=== PATIENT | female | born 2000 | race African-American/Black ===

== ENCOUNTER 2021-07-22 23:50 | Emergency (ER) | payer MEDICAID ==
[~2021-07-22] VITALS: Ht 154.9 cm; Wt 90.0 kg
[2021-07-23 01:07] LABS: BASOPHILS % 0.8 % (0.0-2.0); HEMATOCRIT. 33.8 % (36.0-48.0); HEMOGLOBIN. 10.8 g/dL (12.0-16.0); LYMPHOCYTES % 31.8 % (20.0-50.0); MEAN CORPUSCULAR HEMOGLOBIN 24.7 pg (28.0-32.0); MEAN CORPUSCULAR VOLUME 77.6 fL (81.0-99.0); MONOCYTES % 8.4 % (2.0-8.0); PLATELET 285 x1000/uL (130-400); RED BLOOD CELL COUNT 4.36 mill/uL (4.2-5.4); RED CELL DISTRIBUTION WIDTH 15.8 % (11.6-14.6)
[2021-07-23 01:16] LABS: CHLORIDE 109 mEq/L (98-107)
[2021-07-23 01:19] LABS: ETHANOL BLOOD < 10 mg/dL
[2021-07-23 01:25] LABS: CLARITY URINE CLEAR (CLEAR); COLOR URINE YELLOW (YELLOW); KETONES URINE NEGATIVE (NEGATIVE); LEUKOCYTE ESTERASE URINE NEGATIVE (NEGATIVE); NITRITE URINE NEGATIVE (NEGATIVE); OCCULT BLOOD URINE 1+ (NEGATIVE); PH URINE 5.5 (4.5-8.0); PROTEIN URINE NEGATIVE (NEGATIVE); SPECIFIC GRAVITY URINE 1.016 (1.005-1.030); UROBILINOGEN URINE 0.2 E.U./dL (0.2-1.0)
[2021-07-23 01:46] LABS: *COCAINE SCREEN URINE NEGATIVE (NEGATIVE)
[2021-07-23 01:47] LABS: *AMPHETAMINES SCREEN URINE NEGATIVE (NEGATIVE); *BARBITURATES SCREEN URINE NEGATIVE (NEGATIVE); *BENZODIAZEPINES SCREEN URINE NEGATIVE (NEGATIVE); METHADONE URINE SCREEN NEGATIVE (NEGATIVE); OPIATES URINE SCREEN NEGATIVE (NEGATIVE); PHENCYCLIDINE URINE SCREEN NEGATIVE (NEGATIVE)
[2021-07-23 01:53] LABS: CANNABINOID URINE SCREEN PRESUMTIVE POSITIVE (NEGATIVE)
[2021-07-23 06:00] VITALS: BP 116/59
[2021-07-23] MEDS ORDERED: ASPIRIN 325MG EC TABLET PO ONE (06:00)
== END 2021-07-23 06:27 | disposition short-term general hospital (02) ==
LOC: ER 23:50
DX: R20.0 Anesthesia of skin (principal); I49.9 Cardiac arrhythmia, unspecified
CPT/HCPCS: 36415; 71045; 80048; 80305; 80320; 81003; 81025; 84484; 85025; 93005; 99285; G0480